=== PATIENT | male | born 1945 ===

== ENCOUNTER → 2019-04-03 | Day surgery (SDC) | payer OTHER ==
[~2019-04-03] VITALS: Ht 177.8 cm; Wt 86.2 kg
[~2019-04-03] MED LIST: AMITIZA24 MCG PO; ASPIRIN CHEWABL81 MG PO; MULTI-VITAMIN1 EACH PO; PROSTATE HEALT1 EACH PO; TAMSULOSIN HCL0.4 MG PO
[2019-04-03 09:45] VITALS: BP 140/86
[2019-04-03 11:28] VITALS: BP 116/65
[2019-04-03 11:41] VITALS: BP 122/69
[2019-04-03 11:55] VITALS: BP 113/68
== END | disposition home or self-care (01) ==
LOC: SDC 03-29 13:15
DX: K59.00 Constipation, unspecified (principal); I25.10 Atherosclerotic heart disease of native coronary artery without angina pectoris; K57.30 Diverticulosis of large intestine without perforation or abscess without bleeding; Z98.890 Other specified postprocedural states; Z87.891 Personal history of nicotine dependence